=== PATIENT | female | born 1970 | race Caucasian/White ===

== ENCOUNTER 2019-02-20 10:24 | Inpatient (IN) ==
[2019-02-20] MEDS ORDERED: Ipratropium/Albuterol Neb 3 ML IH ONE ×2 (10:46→12:06)
[2019-02-20] MEDS ORDERED: methylPREDNISolone 125 MG/2 ML VIAL IVP STA (10:46)
[2019-02-20 11:04] LABS: Basophils # 0.1 K/mcL (0.0-0.2); Basophils % 0.8 %; Eosinophils # 1.3 K/mcL (0.0-0.6); Eosinophils % 16.2 %; Hematocrit 38.1 % (35.3-44.9); Hemoglobin 12.4 g/dL (11.5-15.4); Immature Granulocytes % 0.3 % (0-4); Lymphocytes # 1.3 K/mcL (0.6-4.6); Lymphocytes % 16.9 %; Mean Corpuscular HGB Conc 32.5 g/dL (31.6-35.5); Mean Corpuscular Hemoglobin 26.3 pg (28.0-33.3); Mean Corpuscular Volume 80.9 fL (83.0-100.0); Mean Platelet Volume 10.7 fL (9.4-12.4); Monocytes # 0.6 K/mcL (0.0-1.3); Monocytes % 8.1 %; Neutrophils # 4.5 K/mcL (1.6-8.9); Platelet Count 177 K/mcL (140-400); Red Blood Count 4.71 M/mcL (3.82-4.97); Red Cell Distribution Width 13.6 % (11.5-14.5); Segmented Neutrophils % 57.7 %; White Blood Count 7.8 K/mcL (4.3-11.1)
[2019-02-20 11:25] LABS: BUN/Creatinine Ratio 17 (6-26); Blood Urea Nitrogen 16 mg/dL (6-20); Calcium 9.5 mg/dL (8.6-10.3); Carbon Dioxide 40 mEq/L (23-29); Chloride 98 mEq/L (98-107); Glucose 137 mg/dL (70-105); Osmolality,Calculated 299 (280-300); Potassium 3.1 mEq/L (3.5-5.1); Sodium 143 mEq/L (136-145); Troponin I < 0.03 ng/mL (< 0.04); eGFR For African Americans > 60 (> 60); eGFR For Non-African Americans > 60 (> 60)
[2019-02-20] MEDS ORDERED: cefTRIAXone 1,000 MG in Water for inj. (sterile) 10 ML IVP ONE (12:07)
[2019-02-20] MEDS ORDERED: Naloxone 0.4 MG/ML INJ IVP PRN ×2 (12:30→13:15)
[2019-02-20] MEDS ORDERED: Ibuprofen 600 MG TABLET PO PRN (13:15)
[2019-02-20] MEDS ORDERED: Benzonatate 100 MG CAPSULE PO PRN (15:19)
[2019-02-20] MEDS: tiZANidine 4 MG TABLET PO SCH ×2 (15:31→21:50)
[2019-02-20] MEDS: hydrOXYzine pamoate 25 MG CAPSULE PO SCH ×2 (15:31→21:48)
[2019-02-20] MEDS: diazePAM 5 MG TABLET PO SCH ×2 (15:32→21:49)
[2019-02-20] MEDS: *HR* HYDROcodone/Acet 5/325 mg TABLET PO PRN ×2 (15:32→21:49)
[2019-02-20] MEDS: Ipratropium/Albuterol Neb 3 ML IH SCH ×3 (16:23→23:04)
[2019-02-20] MEDS: methylPREDNISolone 125 MG/2 ML VIAL IVP SCH (17:27)
[2019-02-20] MEDS: BuPROPion SR (12 HR) 150 MG TABLET PO SCH (21:49)
[2019-02-20] MEDS: carBAMazepine 200 MG TABLET PO SCH (21:49)
[2019-02-20] MEDS: Pregabalin 50 MG CAPSULE PO SCH (21:50)
[2019-02-20] MEDS: Budesonide/Formoterol 160/4.5 1 PUFF INH IH SCH (23:02)
[2019-02-21] MEDS: methylPREDNISolone 125 MG/2 ML VIAL IVP SCH ×3 (00:48→16:33)
[2019-02-21] MEDS: Ipratropium/Albuterol Neb 3 ML IH SCH ×5 (04:52→21:02)
[2019-02-21 06:19] LABS: Basophils % 0.1 %; Eosinophils % 0.1 %; Hematocrit 38.9 % (35.3-44.9); Hemoglobin 12.7 g/dL (11.5-15.4); Immature Granulocytes % 1.6 % (0-4); Lymphocytes # 1.1 K/mcL (0.6-4.6); Lymphocytes % 12.3 %; Mean Corpuscular HGB Conc 32.6 g/dL (31.6-35.5); Mean Corpuscular Hemoglobin 26.1 pg (28.0-33.3); Mean Platelet Volume 11.3 fL (9.4-12.4); Monocytes # 0.3 K/mcL (0.0-1.3); Monocytes % 2.8 %; Neutrophils # 7.3 K/mcL (1.6-8.9); Platelet Count 193 K/mcL (140-400); Red Blood Count 4.86 M/mcL (3.82-4.97); Red Cell Distribution Width 13.3 % (11.5-14.5); Segmented Neutrophils % 83.1 %; White Blood Count 8.8 K/mcL (4.3-11.1)
[2019-02-21 06:36] LABS: Alanine Aminotransferase 19 Units/L (7-52); Albumin 3.9 g/dL (3.5-5.7); Albumin/Globulin Ratio 1.1 (1.1-2.2); Alkaline Phosphatase 84 Units/L (34-104); Aspartate Amino Transferase 13 Units/L (13-39); BUN/Creatinine Ratio 18 (6-26); Bilirubin,Total 0.3 mg/dL (0.3-1.0); Blood Urea Nitrogen 18 mg/dL (6-20); Calcium 9.6 mg/dL (8.6-10.3); Carbon Dioxide 35 mEq/L (23-29); Chloride 96 mEq/L (98-107); Globulin 3.4 g/dL (2.4-3.5); Glucose 275 mg/dL (70-105); Osmolality,Calculated 302 (280-300); Potassium 3.3 mEq/L (3.5-5.1); Sodium 140 mEq/L (136-145); Total Protein 7.3 g/dL (6.4-8.9); eGFR For African Americans > 60 (> 60); eGFR For Non-African Americans > 60 (> 60)
[2019-02-21 07:12] LABS: Magnesium 1.4 mg/dL (1.6-2.6)
[2019-02-21] MEDS: *HR* HYDROcodone/Acet 5/325 mg TABLET PO PRN ×2 (07:12→16:43)
[2019-02-21] MEDS ORDERED: D5% in Water 1,000 ML IVC PRN (07:50)
[2019-02-21] MEDS ORDERED: *HR* Dextrose 50 % in Water (Vial) 50 ML VIAL IVP PRN (07:50)
[2019-02-21] MEDS ORDERED: Dextrose Gel 15 GM/37.5 ML TUBE PO PRN ×2 (07:50)
[2019-02-21] MEDS: Budesonide/Formoterol 160/4.5 1 PUFF INH IH SCH ×2 (08:25→21:02)
[2019-02-21] MEDS: cefTRIAXone 1,000 MG in Water for inj. (sterile) 10 ML IVP SCH (08:35)
[2019-02-21] MEDS: Multivit/Ca/Min/Fe/FA 1 TAB TABLET PO SCH (08:35)
[2019-02-21] MEDS: carBAMazepine 200 MG TABLET PO SCH ×2 (08:36→21:50)
[2019-02-21] MEDS: hydrOXYzine pamoate 25 MG CAPSULE PO SCH ×3 (08:36→21:49)
[2019-02-21] MEDS: diazePAM 5 MG TABLET PO SCH ×3 (08:36→21:49)
[2019-02-21] MEDS: tiZANidine 4 MG TABLET PO SCH ×3 (08:36→21:50)
[2019-02-21] MEDS: amLODIPine 5 MG TABLET PO SCH (08:37)
[2019-02-21] MEDS: Pregabalin 50 MG CAPSULE PO SCH ×2 (08:37→21:51)
[2019-02-21] MEDS: BuPROPion SR (12 HR) 150 MG TABLET PO SCH ×2 (08:37→21:50)
[2019-02-21] MEDS: FLUoxetine 20 MG CAPSULE PO SCH (08:37)
[2019-02-21] MEDS: Furosemide 40 MG TABLET PO SCH (08:38)
[2019-02-21] MEDS ORDERED: BLACK COHOSH 540 MG PO SCH (09:00)
[2019-02-21 14:55] LABS: Estimated Average Glucose 151 mg/dl
[2019-02-21] MEDS: Insulin LISPRO 300 UNITS/3 ML VIAL SQ SCH ×2 (16:26→16:29)
[2019-02-21] MEDS ORDERED: Insulin LISPRO 300 UNITS/3 ML VIAL SQ SCH (21:00)
[2019-02-22] MEDS: methylPREDNISolone 125 MG/2 ML VIAL IVP SCH ×4 (00:41→22:51)
[2019-02-22] MEDS: Ipratropium/Albuterol Neb 3 ML IH SCH ×6 (00:46→19:46)
[2019-02-22] MEDS: Budesonide/Formoterol 160/4.5 1 PUFF INH IH SCH ×2 (07:57→19:48)
[2019-02-22] MEDS: BuPROPion SR (12 HR) 150 MG TABLET PO SCH ×2 (08:58→20:00)
[2019-02-22] MEDS: hydrOXYzine pamoate 25 MG CAPSULE PO SCH ×3 (08:58→19:59)
[2019-02-22] MEDS: FLUoxetine 20 MG CAPSULE PO SCH (08:58)
[2019-02-22] MEDS: Pregabalin 50 MG CAPSULE PO SCH ×2 (08:58→20:00)
[2019-02-22] MEDS: amLODIPine 5 MG TABLET PO SCH (09:00)
[2019-02-22] MEDS: Furosemide 40 MG TABLET PO SCH (09:01)
[2019-02-22] MEDS: carBAMazepine 200 MG TABLET PO SCH ×2 (09:01→20:00)
[2019-02-22] MEDS: Multivit/Ca/Min/Fe/FA 1 TAB TABLET PO SCH (09:01)
[2019-02-22] MEDS: Insulin LISPRO 300 UNITS/3 ML VIAL SQ SCH ×4 (09:02→20:02)
[2019-02-22] MEDS: cefTRIAXone 1,000 MG in Water for inj. (sterile) 10 ML IVP SCH (09:02)
[2019-02-22] MEDS: *HR* HYDROcodone/Acet 5/325 mg TABLET PO PRN ×2 (09:03→15:19)
[2019-02-22] MEDS: tiZANidine 4 MG TABLET PO SCH ×3 (09:03→19:59)
[2019-02-22 09:06] LABS: Hematocrit 38.8 % (35.3-44.9); Hemoglobin 12.4 g/dL (11.5-15.4); Mean Corpuscular Hemoglobin 25.8 pg (28.0-33.3); Mean Corpuscular Volume 80.7 fL (83.0-100.0); Mean Platelet Volume 11.2 fL (9.4-12.4); Platelet Count 202 K/mcL (140-400); Red Blood Count 4.81 M/mcL (3.82-4.97); Red Cell Distribution Width 13.6 % (11.5-14.5); White Blood Count 12.5 K/mcL (4.3-11.1)
[2019-02-22] MEDS: diazePAM 5 MG TABLET PO SCH ×3 (09:24→20:02)
[2019-02-22 09:27] LABS: BUN/Creatinine Ratio 24 (6-26); Blood Urea Nitrogen 24 mg/dL (6-20); Calcium 9.5 mg/dL (8.6-10.3); Carbon Dioxide 35 mEq/L (23-29); Chloride 94 mEq/L (98-107); Glucose 298 mg/dL (70-105); Osmolality,Calculated 303 (280-300); Potassium 3.3 mEq/L (3.5-5.1); Sodium 139 mEq/L (136-145); eGFR For African Americans > 60 (> 60); eGFR For Non-African Americans 58 (> 60)
[2019-02-22] MEDS: *HR* OxyCODONE/APAP 5/325 TABLET PO PRN (22:51)
[2019-02-23] MEDS: Ipratropium/Albuterol Neb 3 ML IH SCH ×6 (00:23→21:11)
[2019-02-23] MEDS: FLUoxetine 20 MG CAPSULE PO SCH (08:35)
[2019-02-23] MEDS: Pregabalin 50 MG CAPSULE PO SCH ×2 (08:35→20:16)
[2019-02-23] MEDS: Spironolactone 25 MG TABLET PO SCH (08:36)
[2019-02-23] MEDS: tiZANidine 4 MG TABLET PO SCH ×3 (08:36→20:16)
[2019-02-23] MEDS: diazePAM 5 MG TABLET PO SCH ×3 (08:37→20:15)
[2019-02-23] MEDS: hydrOXYzine pamoate 25 MG CAPSULE PO SCH ×3 (08:37→20:17)
[2019-02-23] MEDS: BuPROPion SR (12 HR) 150 MG TABLET PO SCH ×2 (08:37→20:16)
[2019-02-23] MEDS: methylPREDNISolone 125 MG/2 ML VIAL IVP SCH (08:38)
[2019-02-23] MEDS: amLODIPine 5 MG TABLET PO SCH (08:38)
[2019-02-23] MEDS: cefTRIAXone 1,000 MG in Water for inj. (sterile) 10 ML IVP SCH (08:38)
[2019-02-23] MEDS: carBAMazepine 200 MG TABLET PO SCH ×2 (08:38→20:15)
[2019-02-23] MEDS: Furosemide 40 MG TABLET PO SCH (08:38)
[2019-02-23] MEDS: Multivit/Ca/Min/Fe/FA 1 TAB TABLET PO SCH (08:38)
[2019-02-23] MEDS: *HR* HYDROcodone/Acet 5/325 mg TABLET PO PRN ×2 (08:41→17:08)
[2019-02-23] MEDS: Insulin LISPRO 300 UNITS/3 ML VIAL SQ SCH ×4 (08:47→20:18)
[2019-02-23] MEDS: Budesonide/Formoterol 160/4.5 1 PUFF INH IH SCH ×2 (09:01→21:11)
[2019-02-23] MEDS: MethylPREDNISolone 40 MG/ML VIAL IVP SCH (17:09)
[2019-02-23] MEDS: *HR* OxyCODONE/APAP 5/325 TABLET PO PRN (20:28)
[2019-02-24] MEDS: Ipratropium/Albuterol Neb 3 ML IH SCH ×3 (01:25→07:51)
[2019-02-24] MEDS: MethylPREDNISolone 40 MG/ML VIAL IVP SCH (05:35)
[2019-02-24] MEDS: *HR* HYDROcodone/Acet 5/325 mg TABLET PO PRN (05:36)
[2019-02-24 06:53] VITALS: BP 111/68
[2019-02-24] MEDS: Budesonide/Formoterol 160/4.5 1 PUFF INH IH SCH (07:57)
[2019-02-24] MEDS: Insulin LISPRO 300 UNITS/3 ML VIAL SQ SCH (08:08)
[2019-02-24] MEDS: FLUoxetine 20 MG CAPSULE PO SCH (09:47)
[2019-02-24] MEDS: hydrOXYzine pamoate 25 MG CAPSULE PO SCH (09:47)
[2019-02-24] MEDS: Pregabalin 50 MG CAPSULE PO SCH (09:47)
[2019-02-24] MEDS: Spironolactone 25 MG TABLET PO SCH (09:48)
[2019-02-24] MEDS: diazePAM 5 MG TABLET PO SCH (09:48)
[2019-02-24] MEDS: tiZANidine 4 MG TABLET PO SCH (09:48)
[2019-02-24] MEDS: carBAMazepine 200 MG TABLET PO SCH (09:48)
[2019-02-24] MEDS: BuPROPion SR (12 HR) 150 MG TABLET PO SCH (09:48)
[2019-02-24] MEDS: Multivit/Ca/Min/Fe/FA 1 TAB TABLET PO SCH (09:48)
[2019-02-24] MEDS: amLODIPine 5 MG TABLET PO SCH (09:49)
[2019-02-24] MEDS: Furosemide 40 MG TABLET PO SCH (09:49)
== END 2019-02-24 12:19 | disposition home or self-care (01) | DRG 190 ==
LOC: INPPIK 10:24 → EMEROOPIK 10:24 → INPPIK 13:37
PROVIDERS: ADMIT Emergency Medicine; ATTEND Emergency Medicine

== ENCOUNTER 2019-03-06 18:40 | Inpatient (IN) ==
[2019-03-06] MEDS ORDERED: 0.9 % Sodium Chloride 1,000 ML IVC ONE (19:37)
[2019-03-06] MEDS ORDERED: Ipratropium/Albuterol Neb 3 ML IH ONE (19:37)
[2019-03-06] MEDS ORDERED: methylPREDNISolone 125 MG/2 ML VIAL IVP ONE (19:37)
[2019-03-06 20:05] LABS: Basophils % 0.2 %; Hematocrit 37.3 % (35.3-44.9); Hemoglobin 12.1 g/dL (11.5-15.4); Immature Granulocytes % 0.7 % (0-4); Lymphocytes # 0.8 K/mcL (0.6-4.6); Lymphocytes % 8.3 %; Mean Corpuscular HGB Conc 32.4 g/dL (31.6-35.5); Mean Corpuscular Hemoglobin 26.3 pg (28.0-33.3); Mean Corpuscular Volume 81.1 fL (83.0-100.0); Mean Platelet Volume 10.7 fL (9.4-12.4); Monocytes # 0.9 K/mcL (0.0-1.3); Monocytes % 9.6 %; Neutrophils # 7.9 K/mcL (1.6-8.9); Platelet Count 161 K/mcL (140-400); Red Cell Distribution Width 14.4 % (11.5-14.5); Segmented Neutrophils % 81.2 %; White Blood Count 9.7 K/mcL (4.3-11.1)
[2019-03-06 20:24] LABS: BUN/Creatinine Ratio 13 (6-26); Blood Urea Nitrogen 17 mg/dL (6-20); Calcium 8.8 mg/dL (8.6-10.3); Carbon Dioxide 31 mEq/L (23-29); Chloride 99 mEq/L (98-107); Glucose 273 mg/dL (70-105); Osmolality,Calculated 299 (280-300); Potassium 3.6 mEq/L (3.5-5.1); Sodium 139 mEq/L (136-145); eGFR For African Americans 53 (> 60); eGFR For Non-African Americans 44 (> 60)
[2019-03-06 20:25] LABS: Troponin I < 0.03 ng/mL (< 0.04)
[2019-03-06 20:40] LABS: ABG Base Excess 4 mEq/L (-2 to 3); ABG HCO3 31 mEq/L (21-27); ABG Oxygen Saturation 93 % (95-98); ABG PCO2 54 mmHg (35-45); ABG PH 7.36 pH Units (7.32-7.45); ABG PO2 69 mmHg (85-104); ABG TCO2 32 mEq/L (20-26)
[2019-03-06] MEDS ORDERED: Budesonide/Formoterol 160/4.5 1 PUFF INH IH PRN (21:46)
[2019-03-06] MEDS ORDERED: Naloxone 0.4 MG/ML INJ IVP PRN (21:46)
[2019-03-06] MEDS: 0.9 % Sodium Chloride 1,000 ML IVC SCH (22:47)
[2019-03-06] MEDS: *HR* HYDROcodone/Acet 5/325 mg TABLET PO PRN (22:49)
[2019-03-07] MEDS: MethylPREDNISolone 40 MG/ML VIAL IVP SCH ×5 (00:02→17:44)
[2019-03-07] MEDS: Ipratropium/Albuterol Neb 3 ML IH SCH ×6 (01:08→20:08)
[2019-03-07] MEDS: amLODIPine 5 MG TABLET PO SCH (08:36)
[2019-03-07] MEDS: FLUoxetine 20 MG CAPSULE PO SCH (08:36)
[2019-03-07] MEDS: Multivit/Ca/Min/Fe/FA 1 TAB TABLET PO SCH (08:36)
[2019-03-07] MEDS: *HR* SitaGLIPtin 25 MG TABLET PO SCH (08:36)
[2019-03-07] MEDS: Pregabalin 50 MG CAPSULE PO SCH ×2 (08:36→20:02)
[2019-03-07] MEDS: *HR* HYDROcodone/Acet 5/325 mg TABLET PO PRN ×3 (08:37→21:28)
[2019-03-07] MEDS: Furosemide 40 MG TABLET PO SCH (08:38)
[2019-03-07] MEDS: diazePAM 5 MG TABLET PO SCH ×3 (08:38→20:03)
[2019-03-07] MEDS: 0.9 % Sodium Chloride 1,000 ML IVC SCH (08:38)
[2019-03-07] MEDS: hydrOXYzine pamoate 25 MG CAPSULE PO SCH ×3 (08:38→20:01)
[2019-03-07] MEDS: BuPROPion SR (12 HR) 150 MG TABLET PO SCH ×2 (08:38→20:03)
[2019-03-07] MEDS: carBAMazepine 200 MG TABLET PO SCH ×2 (08:38→20:03)
[2019-03-07] MEDS: levoFLOXacin 750 MG/150 ML 750 MG/150 ML BAG IVPB SCH (08:39)
[2019-03-07] MEDS: Benzonatate 100 MG CAPSULE PO PRN (12:17)
[2019-03-07] MEDS: tiZANidine 4 MG TABLET PO SCH ×2 (14:09→20:02)
[2019-03-07] MEDS: Budesonide/Formoterol 160/4.5 1 PUFF INH IH SCH (20:13)
[2019-03-08] MEDS: Ipratropium/Albuterol Neb 3 ML IH SCH ×6 (00:03→20:49)
[2019-03-08] MEDS: MethylPREDNISolone 40 MG/ML VIAL IVP SCH ×4 (01:02→17:39)
[2019-03-08] MEDS: *HR* HYDROcodone/Acet 5/325 mg TABLET PO PRN ×3 (05:12→20:28)
[2019-03-08] MEDS: levoFLOXacin 750 MG/150 ML 750 MG/150 ML BAG IVPB SCH (08:33)
[2019-03-08] MEDS: FLUoxetine 20 MG CAPSULE PO SCH (08:34)
[2019-03-08] MEDS: diazePAM 5 MG TABLET PO SCH ×3 (08:34→20:28)
[2019-03-08] MEDS: amLODIPine 5 MG TABLET PO SCH (08:35)
[2019-03-08] MEDS: Pregabalin 50 MG CAPSULE PO SCH ×2 (08:35→20:27)
[2019-03-08] MEDS: Multivit/Ca/Min/Fe/FA 1 TAB TABLET PO SCH (08:35)
[2019-03-08] MEDS: *HR* SitaGLIPtin 25 MG TABLET PO SCH (08:35)
[2019-03-08] MEDS: hydrOXYzine pamoate 25 MG CAPSULE PO SCH ×3 (08:35→20:28)
[2019-03-08] MEDS: BuPROPion SR (12 HR) 150 MG TABLET PO SCH ×2 (08:35→20:28)
[2019-03-08] MEDS: tiZANidine 4 MG TABLET PO SCH ×3 (08:35→20:28)
[2019-03-08] MEDS: carBAMazepine 200 MG TABLET PO SCH ×2 (08:35→20:27)
[2019-03-08] MEDS: Furosemide 40 MG TABLET PO SCH (08:35)
[2019-03-08] MEDS: Budesonide/Formoterol 160/4.5 1 PUFF INH IH SCH ×2 (10:27→20:49)
[2019-03-08] MEDS: Benzonatate 100 MG CAPSULE PO PRN ×2 (13:43→22:16)
[2019-03-08] MEDS: *HR* Heparin 5,000 UNIT/ML VIAL SQ SCH (17:41)
[2019-03-09] MEDS: Ipratropium/Albuterol Neb 3 ML IH SCH ×7 (00:16→23:09)
[2019-03-09] MEDS: MethylPREDNISolone 40 MG/ML VIAL IVP SCH ×6 (00:17→23:51)
[2019-03-09] MEDS: *HR* HYDROcodone/Acet 5/325 mg TABLET PO PRN ×3 (03:38→23:50)
[2019-03-09] MEDS: *HR* Heparin 5,000 UNIT/ML VIAL SQ SCH ×2 (05:41→17:14)
[2019-03-09] MEDS: Pregabalin 50 MG CAPSULE PO SCH ×2 (08:50→20:11)
[2019-03-09] MEDS: carBAMazepine 200 MG TABLET PO SCH ×2 (08:51→20:12)
[2019-03-09] MEDS: diazePAM 5 MG TABLET PO SCH ×3 (08:51→20:13)
[2019-03-09] MEDS: amLODIPine 5 MG TABLET PO SCH (08:51)
[2019-03-09] MEDS: FLUoxetine 20 MG CAPSULE PO SCH (08:51)
[2019-03-09] MEDS: tiZANidine 4 MG TABLET PO SCH ×3 (08:51→20:12)
[2019-03-09] MEDS: BuPROPion SR (12 HR) 150 MG TABLET PO SCH ×2 (08:51→20:13)
[2019-03-09] MEDS: hydrOXYzine pamoate 25 MG CAPSULE PO SCH ×3 (08:51→20:13)
[2019-03-09 08:52] LABS: Basophils % 0.1 %; Eosinophils % 0.3 %; Hemoglobin 12.7 g/dL (11.5-15.4); Immature Granulocytes % 1.1 % (0-4); Lymphocytes # 1.2 K/mcL (0.6-4.6); Lymphocytes % 13.8 %; Mean Corpuscular HGB Conc 32.6 g/dL (31.6-35.5); Mean Corpuscular Hemoglobin 26.6 pg (28.0-33.3); Mean Corpuscular Volume 81.6 fL (83.0-100.0); Mean Platelet Volume 11.1 fL (9.4-12.4); Monocytes # 0.5 K/mcL (0.0-1.3); Monocytes % 5.8 %; Platelet Count 169 K/mcL (140-400); Red Blood Count 4.78 M/mcL (3.82-4.97); Red Cell Distribution Width 14.3 % (11.5-14.5); Segmented Neutrophils % 78.9 %; White Blood Count 8.8 K/mcL (4.3-11.1)
[2019-03-09] MEDS: *HR* SitaGLIPtin 25 MG TABLET PO SCH (08:52)
[2019-03-09] MEDS: Furosemide 40 MG TABLET PO SCH (08:52)
[2019-03-09] MEDS: levoFLOXacin 750 MG/150 ML 750 MG/150 ML BAG IVPB SCH (08:52)
[2019-03-09] MEDS: Multivit/Ca/Min/Fe/FA 1 TAB TABLET PO SCH (08:52)
[2019-03-09] MEDS: Budesonide/Formoterol 160/4.5 1 PUFF INH IH SCH ×2 (09:01→20:00)
[2019-03-09 09:06] LABS: BUN/Creatinine Ratio 25 (6-26); Blood Urea Nitrogen 26 mg/dL (6-20); Calcium 9.4 mg/dL (8.6-10.3); Carbon Dioxide 35 mEq/L (23-29); Chloride 93 mEq/L (98-107); Glucose 355 mg/dL (70-105); Osmolality,Calculated 307 (280-300); Potassium 4.1 mEq/L (3.5-5.1); Sodium 139 mEq/L (136-145); eGFR For African Americans > 60 (> 60); eGFR For Non-African Americans 57 (> 60)
[2019-03-09] MEDS: 0.9 % Sodium Chloride 1,000 ML IVC SCH (17:04)
[2019-03-09] MEDS: Benzonatate 100 MG CAPSULE PO PRN ×2 (17:04→23:50)
[2019-03-10] MEDS: Ipratropium/Albuterol Neb 3 ML IH SCH ×5 (03:13→21:05)
[2019-03-10] MEDS: 0.9 % Sodium Chloride 1,000 ML IVC SCH (05:29)
[2019-03-10] MEDS: *HR* Heparin 5,000 UNIT/ML VIAL SQ SCH ×2 (05:30→19:45)
[2019-03-10] MEDS: MethylPREDNISolone 40 MG/ML VIAL IVP SCH ×3 (05:30→19:45)
[2019-03-10] MEDS: Budesonide/Formoterol 160/4.5 1 PUFF INH IH SCH ×2 (08:50→21:05)
[2019-03-10] MEDS: FLUoxetine 20 MG CAPSULE PO SCH (10:01)
[2019-03-10] MEDS: *HR* SitaGLIPtin 25 MG TABLET PO SCH (10:01)
[2019-03-10] MEDS: amLODIPine 5 MG TABLET PO SCH (10:02)
[2019-03-10] MEDS: tiZANidine 4 MG TABLET PO SCH ×3 (10:02→20:55)
[2019-03-10] MEDS: hydrOXYzine pamoate 25 MG CAPSULE PO SCH ×3 (10:02→20:55)
[2019-03-10] MEDS: carBAMazepine 200 MG TABLET PO SCH ×2 (10:02→20:55)
[2019-03-10] MEDS: BuPROPion SR (12 HR) 150 MG TABLET PO SCH ×2 (10:02→20:55)
[2019-03-10] MEDS: Pregabalin 50 MG CAPSULE PO SCH ×2 (10:02→20:54)
[2019-03-10] MEDS: Multivit/Ca/Min/Fe/FA 1 TAB TABLET PO SCH (10:02)
[2019-03-10] MEDS: levoFLOXacin 750 MG/150 ML 750 MG/150 ML BAG IVPB SCH (10:03)
[2019-03-10] MEDS: diazePAM 5 MG TABLET PO SCH ×3 (10:03→20:56)
[2019-03-10] MEDS: *HR* HYDROcodone/Acet 5/325 mg TABLET PO PRN ×3 (10:03→23:14)
[2019-03-10] MEDS: Furosemide 40 MG TABLET PO SCH (10:03)
[2019-03-10] MEDS: Benzonatate 100 MG CAPSULE PO PRN ×3 (10:13→23:07)
[2019-03-11] MEDS: Ipratropium/Albuterol Neb 3 ML IH SCH ×3 (00:50→07:48)
[2019-03-11] MEDS: MethylPREDNISolone 40 MG/ML VIAL IVP SCH (03:33)
[2019-03-11] MEDS: *HR* Heparin 5,000 UNIT/ML VIAL SQ SCH (06:30)
[2019-03-11 07:16] VITALS: BP 147/85
[2019-03-11] MEDS: Budesonide/Formoterol 160/4.5 1 PUFF INH IH SCH (07:48)
[2019-03-11] MEDS ORDERED: MethylPREDNISolone 40 MG/ML VIAL IVP SCH ×2 (09:00→16:00)
[2019-03-11] MEDS: Multivit/Ca/Min/Fe/FA 1 TAB TABLET PO SCH (09:47)
[2019-03-11] MEDS: *HR* SitaGLIPtin 25 MG TABLET PO SCH (09:47)
[2019-03-11] MEDS: BuPROPion SR (12 HR) 150 MG TABLET PO SCH (09:47)
[2019-03-11] MEDS: Pregabalin 50 MG CAPSULE PO SCH (09:47)
[2019-03-11] MEDS: tiZANidine 4 MG TABLET PO SCH (09:47)
[2019-03-11] MEDS: Furosemide 40 MG TABLET PO SCH (09:47)
[2019-03-11] MEDS: diazePAM 5 MG TABLET PO SCH (09:48)
[2019-03-11] MEDS: hydrOXYzine pamoate 25 MG CAPSULE PO SCH (09:48)
[2019-03-11] MEDS: FLUoxetine 20 MG CAPSULE PO SCH (09:48)
[2019-03-11] MEDS: amLODIPine 5 MG TABLET PO SCH (09:48)
[2019-03-11] MEDS: carBAMazepine 200 MG TABLET PO SCH (09:48)
[2019-03-11] MEDS: Benzonatate 100 MG CAPSULE PO PRN (10:02)
[2019-03-11] MEDS: *HR* HYDROcodone/Acet 5/325 mg TABLET PO PRN (10:02)
[2019-03-11] MEDS: levoFLOXacin 750 MG/150 ML 750 MG/150 ML BAG IVPB SCH (10:04)
[2019-03-11] MEDS ORDERED: levoFLOXacin 500 MG TABLET PO SCH (10:05)
[2019-03-11] MEDS ORDERED: Albuterol 2.5 MG/3 ML NEBULIZER IH SCH (12:00)
== END 2019-03-11 13:00 | disposition home or self-care (01) | DRG 190 ==
LOC: EMEROOPIK 18:40 → INPPIK 18:40
PROVIDERS: ADMIT Family Medicine; ATTEND Family Medicine

== ENCOUNTER 2019-04-20 15:28 | Observation (INO) ==
[2019-04-20] MEDS ORDERED: methylPREDNISolone 125 MG/2 ML VIAL IVP STA (15:38)
[2019-04-20] MEDS ORDERED: Ipratropium/Albuterol Neb 3 ML IH ONE (15:38)
[2019-04-20 16:31] LABS: Basophils # 0.1 K/mcL (0.0-0.2); Basophils % 0.5 %; Eosinophils # 0.5 K/mcL (0.0-0.6); Eosinophils % 4.1 %; Hematocrit 37.6 % (35.3-44.9); Hemoglobin 12.5 g/dL (11.5-15.4); Immature Granulocytes % 0.5 % (0-4); Lymphocytes # 2.4 K/mcL (0.6-4.6); Lymphocytes % 18.2 %; Mean Corpuscular HGB Conc 33.2 g/dL (31.6-35.5); Mean Corpuscular Hemoglobin 26.4 pg (28.0-33.3); Mean Corpuscular Volume 79.3 fL (83.0-100.0); Mean Platelet Volume 11.7 fL (9.4-12.4); Monocytes # 0.9 K/mcL (0.0-1.3); Monocytes % 7.1 %; Neutrophils # 9.1 K/mcL (1.6-8.9); Platelet Count 170 K/mcL (140-400); Red Blood Count 4.74 M/mcL (3.82-4.97); Red Cell Distribution Width 13.2 % (11.5-14.5); Segmented Neutrophils % 69.6 %; White Blood Count 13.1 K/mcL (4.3-11.1)
[2019-04-20 17:07] LABS: BUN/Creatinine Ratio 16 (6-26); Blood Urea Nitrogen 16 mg/dL (6-20); Calcium 8.8 mg/dL (8.6-10.3); Carbon Dioxide 39 mEq/L (23-29); Chloride 92 mEq/L (98-107); Glucose 182 mg/dL (70-105); Osmolality,Calculated 298 (280-300); Potassium 2.5 mEq/L (3.5-5.1); Sodium 141 mEq/L (136-145); eGFR For African Americans > 60 (> 60); eGFR For Non-African Americans > 60 (> 60)
[2019-04-20] MEDS ORDERED: Azithromycin 500 MG in 0.9 % Sodium Chloride 250 ML IVPB ONE (17:11)
[2019-04-20] MEDS ORDERED: cefTRIAXone 1,000 MG in Water for inj. (sterile) 10 ML IVP ONE (17:20)
[2019-04-20] MEDS ORDERED: Naloxone 0.4 MG/ML INJ IVP PRN (17:42)
[2019-04-20] MEDS ORDERED: Ondansetron 4 MG/2 ML VIAL IVP PRN (17:42)
[2019-04-20] MEDS ORDERED: MOM Conc 10 ML UD.LIQ PO PRN (17:42)
[2019-04-20] MEDS ORDERED: Mag Hydrox/Al Hydrox/Simeth 30 ML UDC PO PRN (17:42)
[2019-04-20] MEDS ORDERED: *HR* Dextrose 50 % in Water (Vial) 50 ML VIAL IVP PRN (18:31)
[2019-04-20] MEDS ORDERED: Dextrose Gel 15 GM/37.5 ML TUBE PO PRN ×2 (18:31)
[2019-04-20] MEDS ORDERED: D5% in Water 1,000 ML IVC PRN (18:31)
[2019-04-20] MEDS: Nicotine 21 MG PATCH.TD24 TD SCH (18:47)
[2019-04-20] MEDS: MethylPREDNISolone 40 MG/ML VIAL IVP SCH (21:16)
[2019-04-20] MEDS: Insulin LISPRO 300 UNITS/3 ML VIAL SQ SCH (21:24)
[2019-04-20] MEDS ORDERED: Potassium Chloride Elixir 20 MEQ/15 ML UDC PO ONE (22:19)
[2019-04-20] MEDS ORDERED: carBAMazepine 200 MG TABLET PO ONE (22:19)
[2019-04-20] MEDS ORDERED: Pregabalin 50 MG CAPSULE PO ONE (22:19)
[2019-04-20] MEDS ORDERED: Melatonin 3 MG TABLET PO ONE (22:45)
[2019-04-20] MEDS: Ipratropium/Albuterol Neb 3 ML IH SCH (22:48)
[2019-04-20] MEDS: Acetaminophen 325 MG TABLET PO PRN (22:54)
[2019-04-20] MEDS: Benzonatate 100 MG CAPSULE PO PRN (23:12)
[2019-04-21] MEDS ORDERED: *HR* OxyCODONE Immed Rel 5 MG TABLET PO ONE (00:17)
[2019-04-21] MEDS ORDERED: Potassium Chloride Elixir 20 MEQ/15 ML UDC PO ONE (02:00)
[2019-04-21] MEDS: Ipratropium/Albuterol Neb 3 ML IH SCH ×4 (04:47→22:26)
[2019-04-21 07:29] LABS: Basophils % 0.2 %; Hematocrit 36.7 % (35.3-44.9); Immature Granulocytes % 0.7 % (0-4); Lymphocytes # 1.1 K/mcL (0.6-4.6); Lymphocytes % 9.3 %; Mean Corpuscular HGB Conc 32.7 g/dL (31.6-35.5); Mean Corpuscular Hemoglobin 26.2 pg (28.0-33.3); Mean Corpuscular Volume 80.1 fL (83.0-100.0); Mean Platelet Volume 11.9 fL (9.4-12.4); Monocytes % 4.5 %; Neutrophils # 10.3 K/mcL (1.6-8.9); Platelet Count 169 K/mcL (140-400); Red Blood Count 4.58 M/mcL (3.82-4.97); Red Cell Distribution Width 13.2 % (11.5-14.5); Segmented Neutrophils % 85.3 %; White Blood Count 12.1 K/mcL (4.3-11.1)
[2019-04-21] MEDS: MethylPREDNISolone 40 MG/ML VIAL IVP SCH ×3 (07:59→20:26)
[2019-04-21] MEDS: Insulin LISPRO 300 UNITS/3 ML VIAL SQ SCH ×3 (07:59→16:29)
[2019-04-21] MEDS: Nicotine 21 MG PATCH.TD24 TD SCH (08:00)
[2019-04-21] MEDS: Benzonatate 100 MG CAPSULE PO PRN ×2 (08:00→22:22)
[2019-04-21 08:03] LABS: BUN/Creatinine Ratio 17 (6-26); Blood Urea Nitrogen 16 mg/dL (6-20); Carbon Dioxide 36 mEq/L (23-29); Chloride 97 mEq/L (98-107); Glucose 298 mg/dL (70-105); Osmolality,Calculated 304 (280-300); Potassium 3.7 mEq/L (3.5-5.1); Sodium 141 mEq/L (136-145); eGFR For African Americans > 60 (> 60); eGFR For Non-African Americans > 60 (> 60)
[2019-04-21 08:06] LABS: Monocytes # 0.5 K/mcL (0.0-1.3)
[2019-04-21] MEDS: cefTRIAXone 1,000 MG in Water for inj. (sterile) 10 ML IVPB SCH (16:30)
[2019-04-21] MEDS: Azithromycin 500 MG in 0.9 % Sodium Chloride 250 ML IVPB SCH (16:30)
[2019-04-21] MEDS: Acetaminophen 325 MG TABLET PO PRN (16:31)
[2019-04-21] MEDS ORDERED: Ibuprofen 600 MG TABLET PO PRN (18:31)
[2019-04-21] MEDS: *HR* SitaGLIPtin 25 MG TABLET PO SCH (18:56)
[2019-04-21] MEDS: amLODIPine 5 MG TABLET PO SCH (18:56)
[2019-04-21] MEDS: Aspirin Enteric Coated 81 MG Tablet PO SCH (18:57)
[2019-04-21] MEDS: BuPROPion SR (12 HR) 150 MG TABLET PO SCH (18:57)
[2019-04-21] MEDS: Furosemide 40 MG TABLET PO SCH (18:57)
[2019-04-21] MEDS: carBAMazepine 200 MG TABLET PO SCH (18:58)
[2019-04-21] MEDS: FLUoxetine 20 MG CAPSULE PO SCH (18:58)
[2019-04-21] MEDS: hydrOXYzine pamoate 25 MG CAPSULE PO SCH (20:25)
[2019-04-21] MEDS: Pregabalin 50 MG CAPSULE PO SCH (20:26)
[2019-04-21] MEDS: tiZANidine 4 MG TABLET PO SCH (20:26)
[2019-04-21] MEDS: diazePAM 5 MG TABLET PO SCH (20:26)
[2019-04-21] MEDS ORDERED: QUEtiapine Fumarate 100 MG TABLET PO SCH (21:00)
[2019-04-21] MEDS ORDERED: BuPROPion SR (12 HR) 150 MG TABLET PO SCH (21:00)
[2019-04-21] MEDS ORDERED: carBAMazepine 200 MG TABLET PO SCH (21:00)
[2019-04-21] MEDS: *HR* HYDROcodone/Acet 5/325 mg TABLET PO PRN (23:20)
[2019-04-22] MEDS: Ipratropium/Albuterol Neb 3 ML IH SCH ×3 (05:27→16:41)
[2019-04-22 05:47] LABS: Hematocrit 37.9 % (35.3-44.9); Hemoglobin 12.2 g/dL (11.5-15.4); Mean Corpuscular HGB Conc 32.2 g/dL (31.6-35.5); Mean Corpuscular Volume 80.8 fL (83.0-100.0); Mean Platelet Volume 11.7 fL (9.4-12.4); Platelet Count 183 K/mcL (140-400); Red Blood Count 4.69 M/mcL (3.82-4.97); Red Cell Distribution Width 13.6 % (11.5-14.5); White Blood Count 14.7 K/mcL (4.3-11.1)
[2019-04-22 06:06] LABS: BUN/Creatinine Ratio 21 (6-26); Blood Urea Nitrogen 22 mg/dL (6-20); Calcium 9.2 mg/dL (8.6-10.3); Carbon Dioxide 32 mEq/L (23-29); Chloride 95 mEq/L (98-107); Glucose 367 mg/dL (70-105); Magnesium 1.7 mg/dL (1.6-2.6); Osmolality,Calculated 304 (280-300); Potassium 3.8 mEq/L (3.5-5.1); Sodium 138 mEq/L (136-145); eGFR For African Americans > 60 (> 60); eGFR For Non-African Americans 57 (> 60)
[2019-04-22] MEDS: Nicotine 21 MG PATCH.TD24 TD SCH (07:44)
[2019-04-22] MEDS: amLODIPine 5 MG TABLET PO SCH (07:52)
[2019-04-22] MEDS: tiZANidine 4 MG TABLET PO SCH ×2 (07:52→14:38)
[2019-04-22] MEDS: *HR* SitaGLIPtin 25 MG TABLET PO SCH (07:52)
[2019-04-22] MEDS: Furosemide 40 MG TABLET PO SCH (07:52)
[2019-04-22] MEDS: Aspirin Enteric Coated 81 MG Tablet PO SCH (07:52)
[2019-04-22] MEDS: hydrOXYzine pamoate 25 MG CAPSULE PO SCH ×2 (07:53→14:38)
[2019-04-22] MEDS: Pregabalin 50 MG CAPSULE PO SCH (07:53)
[2019-04-22] MEDS: diazePAM 5 MG TABLET PO SCH (07:53)
[2019-04-22] MEDS: carBAMazepine 200 MG TABLET PO SCH (07:55)
[2019-04-22] MEDS: FLUoxetine 20 MG CAPSULE PO SCH (07:55)
[2019-04-22] MEDS: MethylPREDNISolone 40 MG/ML VIAL IVP SCH ×2 (07:56→14:38)
[2019-04-22] MEDS: Insulin LISPRO 300 UNITS/3 ML VIAL SQ SCH ×3 (07:56→16:50)
[2019-04-22] MEDS: BuPROPion SR (12 HR) 150 MG TABLET PO SCH (07:56)
[2019-04-22] MEDS: *HR* HYDROcodone/Acet 5/325 mg TABLET PO PRN (14:43)
[2019-04-22 14:53] VITALS: BP 120/67
[2019-04-22] MEDS: cefTRIAXone 1,000 MG in Water for inj. (sterile) 10 ML IVPB SCH (17:36)
[2019-04-22] MEDS: Azithromycin 500 MG in 0.9 % Sodium Chloride 250 ML IVPB SCH (17:40)
== END 2019-04-22 19:20 | disposition home health service (06) ==
LOC: EMEROOPIK 15:28 → INPPIK 15:28 → SUATTDRO 17:43 → INPPIK 18:02
PROVIDERS: ADMIT Internal Medicine; ATTEND Family Medicine